=== PATIENT | female | born 1980 | race Caucasian/White ===

== ENCOUNTER 2017-02-16 05:55 | Day surgery (SDC) | payer OTHER ==
[~2017-02-16] VITALS: Ht 165.1 cm; Wt 56.7 kg
[~2017-02-16 05:55] MED LIST: CALC-192 PO; LEVO1TAB27 PO; METH10TA4 PO; MULT-658 PO; SPIR25TA3 PO
[2017-02-16 06:33] VITALS: BP 99/69
[2017-02-16] MEDS ORDERED: BUPIVACAINE/PF 0.25% ONE (06:49)
[2017-02-16] MEDS ORDERED: SILVER NITRATE STICK TP ONE (06:49)
[2017-02-16] MEDS ORDERED: THROMBIN 5,000 UNIT VIAL TP ONE (06:49)
[2017-02-16] MEDS ORDERED: EPINEPHRINE 1 MG/ML, 1ML ONE (06:49)
[2017-02-16 06:58] VITALS: BP 99/69
[2017-02-16] MEDS ORDERED: ONDANSETRON 2MG/ML, 2ML ONE (06:59)
[2017-02-16] MEDS ORDERED: PROPOFOL 10 MG/ML, 20ML ONE (06:59)
[2017-02-16] MEDS ORDERED: CEFAZOLIN 1,000 MG ONE ×2 (06:59)
[2017-02-16] MEDS ORDERED: DEXAMETHASONE 4 MG/ML, 1ML ONE ×2 (07:00)
[2017-02-16] MEDS ORDERED: KETOROLAC 30 MG/1 ML ONE (07:00)
[2017-02-16] MEDS ORDERED: MIDAZOLAM 1 MG/ML, 2ML ONE (07:00)
[2017-02-16] MEDS ORDERED: FENTANYL PF 100 MCG/2ML ONE (07:00)
[2017-02-16] MEDS ORDERED: ROCURONIUM 10 MG/ML ONE (07:04)
[2017-02-16] MEDS ORDERED: LACTATED RINGERS 1,000 ML IV SCH (07:28)
[2017-02-16] MEDS ORDERED: FENTANYL PF 100 MCG/2ML IV PRN (07:30)
[2017-02-16] MEDS ORDERED: PROMETHAZINE 25 MG/ML, 1ML IV PRN (07:30)
[2017-02-16] MEDS ORDERED: OXYcodone 5 MG/5 ML ORAL.SOL UDC PO PRN (07:30)
[2017-02-16] MEDS ORDERED: NEOSTIGMINE 1 MG/ML, 10ML ONE (07:49)
[2017-02-16] MEDS ORDERED: GLYCOPYRROLATE 0.2MG/1ML, 5ML ONE (07:49)
[2017-02-16] MEDS ORDERED: BUPIVACAINE/PF 0.25% INFIL ONE (08:03)
[2017-02-16] MEDS ORDERED: EPINEPHRINE 1 MG/ML, 1ML INFIL ONE (08:04)
[2017-02-16] MEDS ORDERED: MEPERIDINE/PF 25MG/0.5ML ONE (09:21)
[2017-02-16] MEDS ORDERED: MEPERIDINE/PF 25MG/0.5ML IVPush PRN (09:30)
== END 2017-02-16 11:30 ==
LOC: OUT 05:55
PROVIDERS: ATTEND Obstetrics & Gynecology
DX: N73.6 Female pelvic peritoneal adhesions (postinfective) (principal); E78.00 Pure hypercholesterolemia, unspecified; Z98.890 Other specified postprocedural states; Z90.710 Acquired absence of both cervix and uterus; Z88.1 Allergy status to other antibiotic agents
CPT/HCPCS: 44180; J0171; J0690; J1100; J1885; J2175; J2250; J2405; J2704; J2710; J3010; J3490; J7120